=== PATIENT | female | born 1945 | race Native Hawaiian/Other Pacific Islander ===

== ENCOUNTER 2021-08-17 12:59 | Outpatient (CLI) | payer OTHER | END 2021-08-17 21:21 | disposition home or self-care (01) | LOC: RESP 12:59 | PROVIDERS: ATTEND Orthopaedic Surgery | DX: M79.671 Pain in right foot (principal); S92.354D Nondisplaced fracture of fifth metatarsal bone, right foot, subsequent encounter for fracture with routine healing; M21.371 Foot drop, right foot; Y92.9 Unspecified place or not applicable; G57.43 Lesion of medial popliteal nerve, bilateral lower limbs; G57.33 Lesion of lateral popliteal nerve, bilateral lower limbs; G62.9 Polyneuropathy, unspecified | CPT/HCPCS: 95885; 95910 ==

== ENCOUNTER 2021-09-08 22:45 | Inpatient (IN) | payer OTHER ==
[~2021-09-08] VITALS: Ht 167.6 cm; Wt 68.0 kg
[2021-09-08 22:45] VITALS: BP 87/30; TEMP 98.3
[2021-09-08 23:00] VITALS: BP 87/33
[2021-09-08 23:08] LABS: PLATELET COUNT 245 K/uL (152-353)
[2021-09-08 23:13] LABS: POTASSIUM 4.4 mmol/L (3.6-5.2)
[2021-09-08 23:22] LABS: PARTIAL THROMBOPLASTIN TIME 20.3 SECONDS (24.5-33.6)
[2021-09-08 23:30] VITALS: BP 78/33
[2021-09-09] VITALS (10 sets, daily range): BP systolic 58–120; BP diastolic 20–64; TEMP 97.22–98.3; Ht 167.6 cm; Wt 68.0 kg
[2021-09-09] MEDS ORDERED: ALPR0.5T24 PO (06:00)
[2021-09-09] MEDS ORDERED: DULOXETINE HYDR60 MG PO (06:02)
[2021-09-09] MEDS ORDERED: AMLODIPINE BESYLATE PO (06:03)
[2021-09-09] MEDS ORDERED: GLIPIZIDE ER PO (06:06)
[2021-09-09] MEDS ORDERED: DICLOFENAC SODIUM1 % TD (06:10)
[2021-09-09] MEDS ORDERED: METO100T37 PO (06:11)
[2021-09-09] MEDS ORDERED: METFORMIN HYD1000 MG PO (06:12)
[2021-09-09] MEDS ORDERED: MONTELUKAST SOD10 MG PO (06:14)
[2021-09-09] MEDS ORDERED: CLOPIDOGREL75 MG PO (06:16)
[2021-09-09] MEDS ORDERED: COZAAR100 MG PO (06:17)
[2021-09-09] MEDS ORDERED: AFRIN NASAL SP0.05 % NAS (06:23)
[2021-09-09] MEDS ORDERED: ROSUVASTATIN CA20 MG PO (06:25)
[2021-09-09] MEDS ORDERED: ASPIR-LOW81 MG PO (06:26)
[2021-09-09 13:26] LABS: PLATELET COUNT 164 K/uL (152-353)
[2021-09-10] VITALS: BP 130/58; TEMP 97.9
[2021-09-10 04:04] VITALS: BP 131/66; TEMP 98.3
[2021-09-10 08:00] VITALS: BP 134/58; TEMP 98.5
[2021-09-10 11:17] LABS: PLATELET COUNT 197 K/uL (152-353)
[2021-09-10 11:31] LABS: POTASSIUM 3.8 mmol/L (3.6-5.2)
[2021-09-10 12:00] VITALS: BP 167/80; TEMP 98.1
[2021-09-10] MEDS ORDERED: MONTELUKAST SOD10 MG PO (12:31)
[2021-09-10] MEDS ORDERED: METO100T37 PO (12:31)
[2021-09-10] MEDS ORDERED: DULOXETINE HYDR60 MG PO (12:31)
[2021-09-10] MEDS ORDERED: ROSUVASTATIN CA20 MG PO (12:31)
[2021-09-10] MEDS ORDERED: CLOPIDOGREL75 MG PO (12:31)
[2021-09-10] MEDS ORDERED: COZAAR100 MG PO (12:31)
[2021-09-10] MEDS ORDERED: ALPR0.5T24 PO (12:31)
[2021-09-10] MEDS ORDERED: ASPIR-LOW81 MG PO (12:31)
[2021-09-10] MEDS ORDERED: AMLODIPINE BESYLATE PO (12:31)
[2021-09-10] MEDS ORDERED: GLIPIZIDE ER PO (12:31)
[2021-09-10] MEDS ORDERED: DICLOFENAC SODIUM1 % TD (12:31)
== END 2021-09-10 13:50 | disposition home or self-care (01) | DRG 315 ==
LOC: ED 22:45 → MED/SURG 23:45
PROVIDERS: Hospitalist; ADMIT Family Medicine; ATTEND Family Medicine
DX: I95.89 Other hypotension (principal); N39.0 Urinary tract infection, site not specified; N17.8 Other acute kidney failure; E86.0 Dehydration; R39.2 Extrarenal uremia; B96.20 Unspecified Escherichia coli [E. coli] as the cause of diseases classified elsewhere; D64.89 Other specified anemias; R53.1 Weakness; G89.29 Other chronic pain
CPT/HCPCS: 80053; 80320; 81000; 82550; 83605; 83735; 83880; 84100; 84484; 85027; 85610; 85730; 87077; 87086; 87088; 87186; 87635; 93005; 96360; 96361; 99284; J0696; J1885; J1956; J3475; U0003